=== PATIENT | female | born 2000 | race Caucasian/White ===

== ENCOUNTER 2022-05-23 13:42 | Emergency (ER) | payer BC, SELFPAY ==
--- NOTE | 2022-05-23 15:05 | EXP.UTC ---
Discharge Plan Disposition Patient Disposition: Home, Self-Care Condition: Good Prescriptions Prescriptions: New azithromycin [Zithromax] 250 mg tablet 250 mg PO UD DOSE PK Qty: 6 0RF Rx Instructions: Take two (2) tablets today, then one (1) tablet days #2 thru #5 methylprednisolone 4 mg Tablets,Dose Pack 4 mg PO DIRECTED Qty: 21 0RF iroxjecbqnigrnd-bzauvgiyj-QC [Bromfed DM] 2-30-10 mg/5 mL Syrup 5 ml PO Q6H PRN (Reason: Cough) Qty: 240 0RF No Action Nexplanon 68 mg implant SUBDERMAL Referrals Follow up/Referrals: Carlie Quinteros APRN [Primary Care Provider] - See instructions Activity Restrictions/Add. Instructions Additional Instructions/Restrictions: Drink plenty of fluids. Take tylenol or ibuprofen for pain or fever. Take the medications as directed. Follow up with your regular doctor. GO TO THE ER FOR ANY WORSENING SYMPTOMS Clinical Impressions Clinical Impression: Sinusitis, Acute viral syndrome Stand Alone Forms Stand Alone Forms: Work/School Release Instructions Patient Instructions: Sinusitis, DI for Sinusitis Discharge ED Provider: Vinecnzo Zelaya [facility] [place] HPI General Stated complaint: cough, sore throat, VARMA, congestion Time Seen by Provider: 05/23/22 15:05 History of Present Illness Provider Complaint: She states that for the past 1 week she has had sinus congestion, sinus drainage, sore throat, chest congestion, and malaise. Related Data Home Medications Medication Instructions Recorded Confirmed etonogestrel 68 mg subdermal subdermal 04/24/21 04/24/21 implant (Nexplanon) Previous Rx's Medication Instructions Recorded azithromycin 250 mg tablet 250 mg PO UD DOSE PK #6 tabs 05/23/22 (Zithromax) tgpdbqlrppkarzi-yxupclmxlylkfxs-JG 5 ml PO Q6H PRN Cough #240 mL 05/23/22 2 mg-30 mg-10 mg/5 mL oral syrup (Bromfed DM) methylprednisolone 4 mg tablets in 4 mg PO DIRECTED #21 tabs 05/23/22 a dose pack Allergies Allergy/AdvReac Type Severity Reaction Status Date / Time No Known Allergies Allergy Verified 05/23/22 15:45 [facility] Disclaimer: The information contained in this section may have been updated after the patient was seen, as this information can be updated by other users. Social History Smoking Status: Never smoker alcohol intake: never substance use type: denies use current occupational status: student Travel in the last 8 weeks: None household members: family housing: house ROS Obtained: Yes All systems reviewed & no additional complaints except as documented Constitutional Constitutional: Reports chills and Reports fever(s) Eyes Eyes: Denies eye discharge ENT Ears, Nose, Mouth, and Throat: Reports as per HPI Cardiovascular Cardiovascular: Denies chest pain Respiratory Respiratory: Denies chest congestion and Reports cough Gastrointestinal Gastrointestingal: Reports nausea; Denies abdominal pain, constipation, cramping, diarrhea or vomiting Musculoskeletal Musculoskeletal: Denies arthralgias Integumentary/Breasts Skin/Breast: Denies rash Neurologic Neurologic: Denies paresthesias Physical Exam General General appearance: alert and in no apparent distress Head Head exam: atraumatic, normocephalic and normal inspection Eye Eye exam: Present normal appearance, PERRL and EOMI ENT ENT exam: Present mucous membranes moist and normal external ear exam Expanded ENT Exam TM/Canal exam: Bilateral TM: erythema and bulging Nose exam: Absent sinus tenderness Mouth exam: Present normal external inspection; Absent drooling Teeth exam: Present normal inspection Throat exam: Present tonsillar erythema, tonsillomegaly and tonsillar exudate Neck Neck exam: Present normal inspection, full ROM and trachea midline; Absent tenderness, meningismus or lymphadenopathy Chest Chest inspection: Present normal inspection and symmetric chest wall rise; Ab
[2022-05-23 15:41] VITALS: BP 158/97; PULSE 89; RESP 16; TEMP 36.6; O2SAT 100; BMI 30.1
[2022-05-23 15:52] VITALS: BP 158/97; PULSE 89; RESP 16; TEMP 36.6
[2022-05-23 15:53] LABS: UTC Strep Screen (Rapid) Negative (Negative)
== END 2022-05-23 15:53 | disposition home or self-care (01) ==
PROVIDERS: Emergency Provider Nurse Practitioner Family; PCP Nurse Practitioner Family
DX: U07.1 COVID-19 (principal)
CPT/HCPCS: 87275; 87276; 87880; 99212; C9803; G0463; U0003; U0005

== ENCOUNTER 2023-04-28 10:45 | Emergency (ER) | payer BC, SELFPAY ==
[2023-04-28 10:55] VITALS: BP 157/91; PULSE 113; RESP 18; TEMP 37; O2SAT 98; BMI 29.2
--- NOTE | 2023-04-28 10:57 | EXP.UTC ---
Discharge Plan Disposition Patient Disposition: Home, Self-Care Condition: Good Prescriptions Prescriptions: New sulfamethoxazole-trimethoprim [Bactrim DS] 800-160 mg Tablet 1 tab PO BID Qty: 20 0RF cephalexin 500 mg capsule 500 mg PO QID Qty: 40 0RF mupirocin 2 % ointment 1 applic topical TID 7 Days Qty: 15 0RF No Action Nexplanon 68 mg implant SUBDERMAL Referrals Follow up/Referrals: Provider,Referral, MD [Primary Care Provider] - See instructions Activity Restrictions/Add. Instructions Additional Instructions/Restrictions: Keep the affected area clean and dry. Follow up with your regular doctor. Take the antibiotics as directed and apply the topical antibiotics as directed. Avoid shaving your underarm for the the next couple of months to allow this plenty of time to heal. Apply warm wet compresses to the affected area three or four times per day. GO TO THE ER FOR ANY WORSENING SYMPTOMS Clinical Impressions Clinical Impression: Folliculitis Instructions Patient Instructions: Folliculitis, DI for Folliculitis Discharge ED Provider: Vincenzo Zelaya [facility] General Stated complaint: RASH ON RT SIDE FROM BACK TO ARMPIT Time Seen by Provider: 04/28/23 10:57 History of Present Illness Provider Complaint: She states that for the past 4 days she has had a painful rash on her right axilla and upper arm. She states that some of the lesions have had clear drainage. She has been on vacation and spent a lot of time in a hot tub for the past few days. Related Data Home Medications Medication Instructions Recorded Confirmed etonogestrel 68 mg subdermal subdermal 04/24/21 04/24/21 implant (Nexplanon) Previous Rx's Medication Instructions Recorded cephalexin 500 mg capsule 500 mg PO QID #40 caps 04/28/23 mupirocin 2 % topical ointment 1 applic topical TID 7 days #15 04/28/23 grams sulfamethoxazole 800 1 tab PO BID #20 tabs 04/28/23 mg-trimethoprim 160 mg tablet (Bactrim DS) Allergies Allergy/AdvReac Type Severity Reaction Status Date / Time No Known Allergies Allergy Verified 04/28/23 11:02 [facility] Disclaimer: The information contained in this section may have been updated after the patient was seen, as this information can be updated by other users. Social History Smoking Status: Never smoker alcohol intake: never substance use type: denies use current occupational status: student Travel in the last 8 weeks: None household members: family housing: house ROS Obtained: Yes All systems reviewed & no additional complaints except as documented Constitutional Constitutional: Denies chills and Denies fever(s) Eyes Eyes: Denies eye discharge ENT Ears, Nose, Mouth, and Throat: Denies dizziness, Denies otalgia and Denies sore throat Cardiovascular Cardiovascular: Denies chest pain Respiratory Respiratory: Denies shortness of breath, Denies chest congestion, Denies cough, Denies stridor and Denies wheezing Gastrointestinal Gastrointestingal: Denies nausea or vomiting Musculoskeletal Musculoskeletal: Reports system reviewed and no additional complaints, except as documented and Denies arthralgias Integumentary/Breasts Skin/Breast: Denies rash Neurologic Neurologic: Denies dizziness and Denies paresthesias Allergic/Immunologic Allergic/Immunologic: Denies wheezing Physical Exam General General appearance: alert and in no apparent distress Head Head exam: atraumatic, normocephalic and normal inspection Eye Eye exam: Present normal appearance, PERRL and EOMI ENT ENT exam: Present normal exam, normal oropharynx, mucous membranes moist, TM's normal bilaterally and normal external ear exam Neck Neck exam: Present normal inspection, full ROM and trachea midline; Absent meningismus or lymphadenopathy Chest Chest inspection: Present normal inspection and symmetric chest wall rise;
[2023-04-28 11:39] VITALS: BP 157/91; PULSE 113; RESP 18; TEMP 37; O2SAT 98
== END 2023-04-28 11:39 | disposition home or self-care (01) ==
PROVIDERS: Emergency Provider Nurse Practitioner Family
DX: L73.9 Follicular disorder, unspecified (principal); B96.89 Other specified bacterial agents as the cause of diseases classified elsewhere
CPT/HCPCS: 87070; 87205; 96372; 99212; 99214; G0463; J0696

== ENCOUNTER 2025-05-15 09:15 | Emergency (ER) | payer BC, SELFPAY ==
[2025-05-15] VITALS (8 sets, daily range): BP systolic 107–142; BP diastolic 55–92; PULSE 77–122; RESP 16–19; TEMP 36.7–36.9; O2SAT 98–100; BMI 33.6
--- NOTE | 2025-05-15 09:43 | ED_ITS ---
Discharge Plan Disposition Patient Disposition: Home, Self-Care Prescriptions Prescriptions: New ondansetron 4 mg tablet,disintegrating 4 mg PO Q6H PRN (Reason: nausea and vomiting) 5 Days Qty: 20 0RF No Action Opill 0.075 mg tablet 1 tab PO DAILY Referrals Follow up/Referrals: Provider,Referral, MD [Primary Care Provider, Medical] - See instructions Activity Restrictions/Add. Instructions Additional Instructions/Restrictions: Your symptoms today are consistent with a viral illness. Determine the exact etiology or cause of your virus is not indicated as you are young and healthy without significant comorbidities so you would not be a candidate for antiviral therapy as those agents would have more side effects than benefit for you. Therefore the treatment is supportive meaning we treat your symptoms including your nausea your body aches etc. Please take your nausea medicine as you need at home in addition to taking Tylenol and ibuprofen as needed for fevers or bodyaches. Return to the emergency room with any significant worsening of your symptoms. Keep yourself well-hydrated with glucose and salt containing fluids like Gatorade or Powerade until your urine is clear. Clinical Impressions Clinical Impression: Nausea & vomiting, Dehydration, moderate, Body aches Instructions Patient Instructions: DI for Acute Abdominal Pain Print Language Print Language: Indonesian Discharge ED Provider: Gt Coombs General Adult HPI General Chief complaint: Abdominal Pain Stated complaint: n/v, cramping, body aches, chills Time Seen by Provider: 05/15/25 09:32 Mode of Arrival: Ambulatory Source of Information: Patient Description of Symptoms (Recalled from ER Triage Doc. by RN): patient states around 11pm lastnight she was in shower and suddenly became dizzy, with nausea and vomiting. she also has LLQ pain that is sharp, 5/10 pain. still has appendix and gallbladder History of Present Illness HPI narrative: 24-year-old female presents today with nausea and vomiting no significant abdominal pain from a historical standpoint. States that she has been throwing up numerous times overnight. Gets lightheaded with sitting up and feels better with lying down at the moment. No diarrhea. No fevers or chills does have sick contacts in her household. Related Data Home Medications ?Medication ?Instructions ?Recorded ?Confirmed norgestrel 0.075 mg tablet (Opill) 1 tab PO DAILY 10/0208/11/24 Previous Rx's ?Medication ?Instructions ?Recorded ondansetron 4 mg disintegrating 4 mg PO Q6H PRN nausea and 05/15/25 tablet vomiting 5 days #20 tabs Allergies Allergy/AdvReac Type Severity Reaction Status Date / Time No Known Allergies Allergy Verified 08/11/24 13:39 [facility] Disclaimer: The information contained in this section may have been updated after the patient was seen, as this information can be updated by other users. Medical History No significant past medical history Surgical History Hx of wisdom tooth extraction History of tonsillectomy and adenoidectomy Social History Smoking Status: Never smoker alcohol intake: never substance use type: denies use current occupational status: student Travel in the last 8 weeks?: None household members: family housing: house Have you lived/traveled outside [place] in past 30 days?: No Contact w/someone who lives/traveled outside [place] past 30 days?: No Exposure to someone with infectious disease in past 14 days?: No Do you have a fever (greater than 100.4 F or 38 C)?: No Have you tested positive for COVID-19?: No Exposed to someone with COVID-19 in past 14 days?: No Do you have a sore throat?: No Do you have a cough?: Yes Do you have any weakness?: Yes Do you have any diarrhea?: Yes Are you experiencing any unusual bleeding?: No Do you have any muscle aches/pain?: No Do you have any abdominal pain?: Yes Are you experiencing loss of taste or smell?: No Other Medical History Have you received the Pneumonia Vaccine: No ROS Obtained: Yes All systems reviewed & no additional complaints except as documented Physical Exam General General appearance: alert and in no apparent distress Respiratory Respiratory exam: Present normal lung sounds bilaterally Cardiovascular Cardiovascular exam: Present tachycardia and other (Delayed cap refill mucous membranes are otherwise moist) Abdominal Exam Abdominal exam: Present soft; Absent distention or tenderness Neurological Exam Neurological exam: Present alert and oriented X3 Medical Decision Making Medical Records Screening: Per USPSTF and CDC recommendations, given the prevalence of disease in our region, it is our hospital?s policy to screen for HIV and viral Hepatitis for all patients aged 18 and over and those with ongoing risk factors. Kelvin Inquiry Pt receiving controlled substance: No Vital Signs: 05/15/25 09:25 05/15/25 09:26 05/15/25 09:30 Temperature 98.5 F Temperature Source Oral Pulse Rate 122 H 103 H Pulse Rate [Right Radial] 111 H Respiratory Rate 16 Blood Pressure 142/92 H 138/84 Blood Pressure [Right Arm] 142/92 H Blood Pressure Mean [Right Arm] 108 Blood Pressure Source [Right Arm] Automatic Cuff Blood Pressure Position [Right Arm] Supine 02 Sat by Pulse Oximetry 100 99 100 Oxygen Delivery Method Room Air 05/15/25 10:01 05/15/25 10:31 05/15/25 11:00 Temperature Temperature Source Pulse Rate 86 90 77 Pulse Rate [Right Radial] Respiratory Rate Blood Pressure 123/76 107/55 L 128/73 Blood Pressure [Right Arm] Blood Pressure Mean [Right Arm] Blood Pressure Source [Right Arm] Blood Pressure Position [Right Arm] 02 Sat by Pulse Oximetry 100 98 100 Oxygen Delivery Method Room Air Lab Data Lab results reviewed: Yes I reviewed the patient's lab results. Lab Results 05/15/25 09:29: WBC 9.3, RBC 4.99, Hgb 13.7, Hct 42.8, MCV 85.8, MCH 27.5, MCHC 32.0, RDW 12.5, Plt Count 150, MPV 11.5 H, Neut % (Auto) 89.8 H, Lymph % (Auto) 4.3 L, Bladen % (Auto) 5.0, Eos % (Auto) 0.2, Baso % (Auto) 0.2, Neut # (Auto) 8.4 H, Lymph # (Auto) 0.4 L, Bladen # (Auto) 0.5, Eos # (Auto) 0.0, Baso # (Auto) 0.0, Total Counted 100, Neutrophils % (Manual) 91 H, Lymphocytes % (Manual) 4 L, Monocytes % (Manual) 4, Eosinophils % (Manual) 1, Platelet Estimate Normal, RBC Morphology Normal, Sodium 134 L, Potassium 4.1, Chloride 104, Carbon Dioxide 23, Anion Gap 11.1, BUN 14, Creatinine 0.80, Estimated Creat Clear 150, Estimated GFR 90, Est GFR ( Amer) 109, Glucose 114 H, Calcium 9.4, Total Bilirubin 1.3, AST 42 H, ALT 47, Alkaline Phosphatase 89, Total Protein 7.7, Albumin 4.7, Globulin 3.0, Albumin/Globulin Ratio 1.6, Serum HCG, Qual Negative, HCV Ab CARTER w/Rflx PCR Qn Negative 05/15/25 09:29 05/15/25 09:29 Orders (Tests/Meds): ED MEDICATIONS Discontinued Medications Generic Name Dose Route Start Last Admin Trade Name Freantonieta PRN Reason Stop Dose Admin Lactated Ringer's 1,000 mls @ 999 mls/hr 05/15/25 09:45 12 11:04 Lactated Ringer's 1000 Ml Bag IV 05/15/25 10:45 Infused .Q1H1M LUCRETIA Infusion Ondansetron HCl 4 mg 05/15/25 09:37 12 09:54 Ondansetron 4mg/2ml Vial IV 05/15/25 09:38 4 mg ONCE ONE Administration ORDERS Category Date Time Status CBC w/Auto Diff [Complete Blood Count Auto Diff] Stat Lab 05/15/25 09:29 Completed CMP [Comprehensive Metabolic Panel] Stat Lab 05/15/25 09:29 Completed HCG Qualitative, Serum Stat Lab 05/15/25 09:29 Completed HIV Combo Stat Lab 05/15/25 09:29 Received Hepatitis C Ab Qual. W/ RFX Stat Lab 05/15/25 09:29 Completed Medical Decision Narrative: Patient with above history and physical she has a benign abdominal exam. I am not concerned about surgical pathology at the moment. Neurologically she appears normal. From a cardiovascular standpoint she has delayed capillary refill is tachycardic she was tachycardic to 130 while sitting this improved while lying down into the 80s and 90s suggesting that she has some orthostatic component. Likely secondary to dehydration. Will give her IV fluids nausea medicine and reassess in addition to getting electrolytes etc. Reassessment 1151 patient feeling much better from a nausea and vomiting standpoint is tolerating p.o. Labs unremarkable from an emergency standpoint. She does still have some significant myalgias and bodyaches throughout I offered to give her Toradol but she wanted to go home and take Tylenol or ibuprofen. Serial exams are benign and still do not think she has any type of surgical pathology going on. This is likely a viral illness possibly the flu or some other causes like that at the moment. However she is young without any significant comorbidities and is not a candidate for antiviral therapy as she is not in the high risk category she was discharged in stable condition with supportive care Critical Care Critical Care Time Critical Care Time: No
[2025-05-15 09:48] LABS: Hematocrit 42.8 % (37.0-47.0); Hemoglobin 13.7 g/dL (12.2-16.2); Immature Granulocytes % 0.5 %; Mean Corpuscular HGB Conc 32.0 g/dL (31.8-35.4); Mean Corpuscular Hemoglobin 27.5 pg (27.0-31.2); Mean Corpuscular Volume 85.8 fl (81-99); Nucleated Red Blood Cells % 0 %; Platelet Count 150 K/mm3 (142-424); Red Blood Count 4.99 M/mm3 (4.20-5.40); Red Cell Distribution Width-SD 39.0 fL; White Blood Count 9.3 K/mm3 (4.8-10.8)
[2025-05-15] MEDS: LACTATED RINGERS 1000ML 1,000 ML 999 ML IV (09:53)
[2025-05-15] MEDS: ONDANSETRON 4MG/2ML VIAL 4 MG IV (09:54)
[2025-05-15 10:08] LABS: Alanine Aminotransferase 47 U/L (12-78); Albumin Level 4.7 g/dl (3.5-5.0); Albumin/Globulin Ratio 1.6 (1.1-1.8); Alkaline Phosphatase 89 U/L (38-126); Anion Gap 11.1 mEq/L (5-15); Aspartate Amino Transferase 42 U/L (14-36); Bilirubin,Total 1.3 mg/dl (0.2-1.3); Blood Urea Nitrogen 14 mg/dl (7-17); Calcium 9.4 mg/dl (8.4-10.2); Carbon Dioxide 23 mmol/L (22.0-30.0); Chloride 104 mmol/L (98-107); Creatinine Clearance Estimated 150 mL/min (50-200); Creatinine,Serum 0.80 mg/dl (0.52-1.04); Estimated Glomerular Filt Rate 90 ml/min (>60); GFR (African American) 109 ML/MIN (>60); Globulin 3.0 g/dL (1.3-3.2); Glucose 114 mg/dl (74-100); Potassium 4.1 mmoL/L (3.5-5.1); Sodium 134 mmol/L (136-145); Total Protein,Serum 7.7 g/dl (6.3-8.2)
[2025-05-15 10:18] LABS: HCG Qualitative, Serum Negative (Negative)
[2025-05-15 10:56] LABS: RBC Morphology Normal; Total Cells Counted 100
[2025-05-15 11:35] LABS: Hepatitis C Ab Qual. W/ RFX NEGATIVE (Negative)
== END 2025-05-15 11:58 | disposition home or self-care (01) ==
PROVIDERS: Emergency Provider Student in an Organized Health Care Education/Training Program
DX: R11.2 Nausea with vomiting, unspecified (principal); E86.0 Dehydration; R52 Pain, unspecified
CPT/HCPCS: 80053; 84703; 85007; 85025; 85027; 86803; 87389; 96361; 96374; 99285; J2405; J7120